=== PATIENT | female | born 1965 | race African-American/Black ===

== ENCOUNTER 2016-09-04 05:18 | Day surgery (SDC) | payer OTHER ==
[2016-09-03 13:09] LABS: HEMATOCRIT 39.8 % (36.0-48.0); HEMOGLOBIN 12.8 g/dL (12-16); MCH 27.2 pg (26.0-34.0); MCHC 32.2 g/dL (31.0-37.0); MCV 84.7 fL (80.0-100.0); MEAN PLATELET VOLUME 11.3 fL (7.4-10.4); RBC 4.7 10x6/uL (4.00-5.40); WBC 5.4 10x3/uL (4.8-10.8)
[~2016-09-04] VITALS: Ht 163.8 cm; Wt 90.3 kg
[~2016-09-04 05:18] MED LIST: ADIPEX-P37.5 M1 PO; CYMBALTA20 MG PO; MINIVELLE1 EAC1 TRANSDERM; NORCO 10/325 TA1 TA1 PO
[2016-09-04 08:29] VITALS: BP 131/80; Ht 163.8 cm; Wt 90.3 kg
[2016-09-04] MEDS ORDERED: DILAUDID2 MG PO (10:43)
--- NOTE | 2016-09-04 18:26 | NUR ---
1230 IC DC WITH CATHER TIP INTACT WAITING ON PT FOR CRUTCH TRAINING
--- NOTE | 2016-09-08 11:07 | OP ---
PATIENT NAME: KARRI HU MEDICAL RECORD: [id number] :69 LOCATION:[facility] ADMISSION DATE: SURGEON: MARICARMEN DAMICO MD DATE OF OPERATION: 09/04/2016 Orthopedic Surgery Operative Note PREOPERATIVE DIAGNOSIS: Medial meniscus tear. 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 PROCEDURE: Arthroscopic partial medial meniscectomy. SURGEON: Maricarmen Damico MD ANESTHESIA: General. INTRAOPERATIVE COMPLICATIONS: None. SUMMARY OF PATHOLOGIC FINDINGS: The patient had a horizontal cleavage planes tear of the posterior horn of medial meniscus with instability. The patient also had an area of grade II chondromalacia, likely associated with chondral damage associated from the meniscal tear. OPERATIVE SUMMARY IN DETAIL: After obtaining the appropriate preoperative orthopedic surgery consents as well as anesthetic consultation, evaluation and clearance, the patient was brought to the operating room and placed on the operating table in supine position. After adequate general laryngeal mask was administered, tourniquet was placed about the proximal aspect of the left lower extremity. Left lower extremity was prepped and draped in routine sterile fashion. The leg was elevated and exsanguinated, tourniquet inflated to 350 mmHg. Routine inferolateral portal was established followed by superomedial portal and inferomedial portal. Diagnostic arthroscopy showed the patient had the above-mentioned findings. Combination of arthroscopic meniscotome as well as an arthroscopic resector were utilized to debride the meniscus back to stable meniscal elements. Gentle chondroplasty was performed on the distal femur to remove any loose chondral elements. Having completed this, the lateral compartment was thoroughly evaluated and found to be pristine as well as the patellofemoral joint with only a small amount of lateral rodding of patellofemoral joint noted. The knee was insufflated with 30 cc of 0.25% Marcaine with epinephrine and 80 mg of Depo-Medrol. Arthroscopy portals were closed in routine interrupted fashion using 4-0 Prolene. Sterile dressings were applied. Tourniquet was deflated. The patient was awakened, taken to recovery in stable condition. All final needle and sponge counts were correct. TRANSINT:[id number] Voice Confirmation ID: [id number] DOCUMENT ID: [id number] OPERATIVE REPORT [id number] KARRI HU MD, MARICARMEN HEATH at 1107 CC: [id number] DICTATION DATE: 09/04/16 1052 [facility] Y[facility]: 09/04/16 1240 [facility] [place] 09/04/16 [place] [id number] [place] [address]
== END 2016-09-04 13:00 | disposition home or self-care (01) ==
LOC: D.PAN 05:18
PROVIDERS: Anesthesiology
DX: S83.242A Other tear of medial meniscus, current injury, left knee, initial encounter (principal); M94.262 Chondromalacia, left knee